=== PATIENT | male | born 1950 | race Caucasian/White ===

== ENCOUNTER 2025-06-15 09:38 | Emergency (ER) | payer OTHER, SELFPAY ==
[2025-06-15 09:47] VITALS: BP 113/70; PULSE 74; RESP 18; TEMP 36.6; O2SAT 95
--- NOTE | 2025-06-15 10:25 | W.ED.GENAD ---
Discharge Plan Disposition Patient Disposition: Home Discharge Details Clinical Impression: Right-sided nosebleed Primary Care Provider: Unknown,Unknown ED Provider: Niko Morales Home Meds and New Rx's Prescriptions: Continued candesartan 8 mg tablet 8 mg PO DAILY mupirocin 2 % ointment 1 applic topical BID omeprazole 20 mg capsule,delayed release(DR/EC) 20 mg PO DAILY cholecalciferol (vitamin D3) 25 mcg (1,000 unit) capsule 25 mcg PO DAILY rosuvastatin 20 mg tablet 20 mg PO DAILY tamsulosin 0.4 mg capsule 0.4 mg PO DAILY diclofenac sodium 1 % gel 2 g topical QID Rx Instructions: apply 2 grams to upper and 4 grams to lower extremities topically four times daily as needed for pain/ inflammation- do not exceed 16 grams daily to any joint of lower extremities. Do not exceed 8 grams daily to any joint of upper extremities. Do not exceed total dose of 32 grams daily over all joints. Discharge Instructions Instructions: Humidifiers Additional Instructions: You are seen in the emergency department for your nosebleed. Please use the spray that you have been given and spray twice if you develop a nosebleed again. You may use this clamp as well. If your bleeding does not stop or bleeds through the clamp please return to the emergency department. Otherwise please follow-up with your pedigree researcher as previously scheduled in 2 weeks. Discharge Data Discharge Date/Time-TO BE ENTERED AT DEPARTURE: 06/15/25 13:14 HPI General Date/Time Provider Initiated Documentation: 06/15/25 10:25. HPI Narrative: MDM This is an overall quite well-appearing normothermic and not tachycardic 75-year-old male with resolved epistaxis for which patient received empiric trial of discharge with expectant outpatient management. Patient was observed in the emergency department for multiple hours. He had no constitutional symptoms to suggest granulomatosis with polyangiitis. Not anticoagulated nor having any ongoing bleeding to suggest benefit from for factor pro thrombin complex concentrate. No infectious symptoms to suggest rhinosinusitis. No trauma to suggest benefit from CT scan. No history of hereditary hemorrhagic telangiectasias. Patient was observed in the emergency department on multiple reassessments. He had no active ongoing epistaxis. He had no posterior oropharynx epistaxis. I discharged him following several sprays with oxymetazoline. We discussed that he should return if he develops recurrent bleeding if he had any syncopal episodes or if he developed any chest pain. HPI This is a 75-year-old male who follows with the [facility] regarding the emergency department via private vehicle in the setting of right sided epistaxis. Patient reports that he has been followed by the [facility] for the past 1-1/2 years. He has had a biopsy of a lesion inside of his right nares and was told that this was infectious. He has been using a topical salve. This morning he was preparing to go turkey hunting when he began developing bleeding from his right naris. He is not on any blood thinners. He did not strike his nose. He has not been nauseous nor vomiting. He denies chest pain fevers shortness of breath. He is not currently noticing any bleeding down his posterior oropharynx. Exam General: Well-appearing in no acute distress speaking in complete sentences. Head: Normocephalic, atraumatic. Eye: Extraocular eye movements intact. No conjunctival injection. No scleral icterus. Ear, nose, mouth, throat: Right naris with no active hemorrhage. On inspection no obvious source of active bleeding. Trace dried blood. Posterior oropharynx with no signs of bleeding. Neck: Trachea midline. Cardiovascular: Well-perfused distal extremities. Respiratory: Nonlabored respiration. Gastrointestinal: Nondistended abdomen. Musculoskeletal: No edema. Moving all 4 extremities spontaneously. Skin: Normal for age and race, grossly normal temperature and turgor. No acute rash. Neurologic: Alert and appropriate, no apparent acute deficits. Psychiatric: Mood and manner are appropriate. Grooming and personal hygiene are appropriate. Related Data Home Medications Medication Instructions Recorded Confirmed candesartan 8 mg tablet 8 mg PO DAILY 06/15/25 06/15/25 cholecalciferol (vitamin D3) 25 25 mcg PO DAILY 06/15/25 06/15/25 mcg (1,000 unit) capsule diclofenac sodium 1 % topical gel 2 g topical QID 06/15/25 06/15/25 mupirocin 2 % topical ointment 1 applic topical BID 06/15/25 06/15/25 omeprazole 20 mg capsule,delayed 20 mg PO DAILY 06/15/25 06/15/25 release rosuvastatin 20 mg tablet 20 mg PO DAILY 06/15/25 06/15/25 tamsulosin 0.4 mg capsule 0.4 mg PO DAILY 06/15/25 06/15/25 Allergies Allergy/AdvReac Type Severity Reaction Status Date / Time No Known Allergies Allergy Unverified 06/15/25 09:47 General Stated Complaint: Epistaxis JEWEL: 4 Course Vital Signs Vital signs: Vital Signs Temperature 36.6 C 06/15/25 09:47 Pulse 74 06/15/25 09:47 Respiratory Rate 18 06/15/25 09:47 Blood Pressure 113/70 06/15/25 09:47 Pulse Oximetry 95 06/15/25 09:47 Temperature 36.6 C 06/15/25 09:47 Temperature Source Tympanic 06/15/25 09:47 Pulse 74 06/15/25 09:47 Respiratory Rate 18 06/15/25 09:47 Blood Pressure 113/70 06/15/25 09:47 Blood Pressure Position Sitting 06/15/25 09:47 Pulse Oximetry 95 06/15/25 09:47 Oxygen Delivery Method Room Air 06/15/25 09:47 Oxygen Flow Rate 0 06/15/25 09:47 Pain Level 0 06/15/25 09:47 PFSH All Active Problems (Updated 06/15/25 @ 13:05 by Niko Morales MD) Right-sided nosebleed (Acute) Social History Smoking/Tobacco Use Status: Former Tobacco Use Smoking risk assessment performed?: Yes Alcohol Intake: current Alcohol Intake frequency: a few times a month Alcohol type: hard liquor Drug use: Never Housing: house Do you feel safe at home: Yes Do you feel safe in your relationship?: Yes
[2025-06-15 12:33] VITALS: BP 116/62
[2025-06-15] MEDS: Oxymetazolone 0.05% SPRAY 15 ML BTL NS (13:09)
[2025-06-15 13:14] VITALS: BP 115/63; PULSE 75; RESP 18; O2SAT 96
== END 2025-06-15 13:14 | disposition home or self-care (01) ==
PROVIDERS: Emergency Provider Emergency Medicine
DX: R04.0 Epistaxis (principal)
CPT/HCPCS: 99283 ×2